=== PATIENT | female | born 1990 | race Caucasian/White ===

== ENCOUNTER 2017-03-25 23:22 | Emergency (ER) | payer OTHER ==
[~2017-03-25] VITALS: Ht 152.4 cm; Wt 94.5 kg
[~2017-03-25 23:22] MED LIST: ALBU0.08 INH; ALBU1AER9 PO
[2017-03-25 23:25] VITALS: TEMP 36.7; Ht 152.4 cm; Wt 94.5 kg
[2017-03-25] MEDS ORDERED: KETOROLAC TROMETHAMINE 60 MG/2 ML VIAL IM STA (23:40)
[2017-03-26] MEDS ORDERED: ACET-1256 PO (00:10)
[2017-03-26] MEDS ORDERED: VNTHFA/IN INH (00:11)
[2017-03-26] MEDS ORDERED: ALBINS/ INH (00:11)
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
[2017-03-26 00:56] VITALS: BP 133/73; PULSE 81; O2SAT 95
--- NOTE | 2017-03-26 08:19 | DIAGNOSTIC IMAGING REPORT ---
LEFT SHOULDER 3 VIEWS HISTORY: left shoulder pain COMPARISON: None. FINDINGS: There is no fracture or dislocation. Soft tissues are unremarkable. The left clavicle is intact. Mild AC joint arthropathy. IMPRESSION: No fractures. Electronically signed by: Fuentes Torres M.D. 03/26/2017 8:17 AM Dictated Date/Time: 03/26/2017 8:16 AM
== END 2017-03-26 00:57 | disposition home or self-care (01) ==
LOC: C.EDB 23:22
DX: S46.912A Strain of unspecified muscle, fascia and tendon at shoulder and upper arm level, left arm, initial encounter (principal); R20.0 Anesthesia of skin; E03.9 Hypothyroidism, unspecified; J45.909 Unspecified asthma, uncomplicated; Z87.442 Personal history of urinary calculi; Z87.828 Personal history of other (healed) physical injury and trauma; X50.0XXA Overexertion from strenuous movement or load, initial encounter; Y99.0 Civilian activity done for income or pay; Y93.F9 Activity, other caregiving

== ENCOUNTER → 2017-04-23 | Outpatient (CLI) | payer OTHER ==
[~2017-04-23] MED LIST changes: +ACET-1256 PO; +ALBINS/ INH; -ALBU0.08 INH; -ALBU1AER9 PO; +PENI-82 PO; +VNTHFA/IN INH
--- NOTE | 2017-04-24 10:05 | DIAGNOSTIC IMAGING REPORT ---
MRI OF THE LEFT SHOULDER WITHOUT CONTRAST CLINICAL HISTORY: Left shoulder strain. COMPARISON STUDY: Left shoulder radiographs March 26, 2017. TECHNIQUE: Utilizing 1.5 Jessi magnet and dedicated coil, multiplanar, multi echo imaging of the left shoulder was performed without intravenous or intra-articular contrast. FINDINGS: Alignment of left shoulder is anatomic. There is no evidence for fracture. There is capsular hypertrophy with joint space narrowing and edema associated with the left acromioclavicular joint. There is no significant chondrosis of the glenohumeral joint. Proximal long head of biceps tendon is intact. This study is compromised by diminished [id number] ratio. The glenoid labrum is suboptimally assessed on this nonarthrogram exam but appears intact. There is linear fluid signal within the articular surface of distal supraspinatus shown best on sagittal image 17 of 21. This suggests a partial-thickness supraspinatus tear. There is no full-thickness rotator cuff tear. IMPRESSION: 1. Findings suggestive of a partial thickness articular surface tear of distal supraspinatus. No full-thickness cuff tear. No tendon retraction or muscular atrophy. 2. 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 Electronically signed by: Be Geller M.D. 04/24/2017 10:03 AM Dictated Date/Time: 04/23/2017 2:20 PM
== END | disposition home or self-care (01) ==
LOC: C.MRI 13:26
PROVIDERS: ATTEND Preventive Medicine Occupational Medicine
DX: S46.912A Strain of unspecified muscle, fascia and tendon at shoulder and upper arm level, left arm, initial encounter (principal); M19.012 Primary osteoarthritis, left shoulder; X58.XXXA Exposure to other specified factors, initial encounter

== ENCOUNTER 2017-07-28 00:05 | Emergency (ER) | payer OTHER ==
[~2017-07-28] VITALS: Ht 152.4 cm; Wt 93.9 kg
[~2017-07-28 00:05] MED LIST changes: -PENI-82 PO
[2017-07-28 00:11] VITALS: BP 147/98; PULSE 91; TEMP 36.4; O2SAT 100; Ht 152.4 cm; Wt 93.9 kg
[2017-07-28] MEDS ORDERED: PENI-82 PO (00:23)
[2017-07-28] MEDS ORDERED: PENICILLIN HOME PACK 500MG (4 DOSES)BTL PO ONE (00:30)
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
== END 2017-07-28 00:40 | disposition home or self-care (01) ==
LOC: C.EDB 00:07 → C.EDC 00:40
DX: K04.7 Periapical abscess without sinus (principal); J45.909 Unspecified asthma, uncomplicated; E03.9 Hypothyroidism, unspecified